=== PATIENT | female | born 1960 | race Caucasian/White ===

== ENCOUNTER → 2017-01-07 | Outpatient (CLI) | payer OTHER ==
--- NOTE | 2017-01-07 14:06 | RAD ---
DATE: 01/07/2017 EXAM: DIGITAL DIAGNOSTIC RT HISTORY: Suspicious screening study COMPARISON: 12/29/2016 This study was interpreted with the benefit of Computerized Aided Detection (CAD). The breast parenchyma shows scattered fibroglandular densities. Breast parenchyma level B. FINDINGS: On the screening mammograms a suspicious opacity was noted posteriorly on only the oblique view of the right breast. Today's spot compression and straight medial lateral views of that region do not demonstrate a nodule. Spot compression cc views of the lateral aspect of the breast are also unremarkable. The appearance on the screening study was presumably a summation shadow. IMPRESSION: There is no mammographic evidence of malignancy in the right breast. BI-RADS CATEGORY: 2 BENIGN FINDING(S) RECOMMENDED FOLLOW-UP: 12M 12 MONTH FOLLOW-UP PQRS compliance statement: Patient information was entered into a reminder system with a target due date for the next mammogram. Mammography is a sensitive method for finding small breast cancers, but it does not detect them all and is not a substitute for careful clinical examination. A negative mammogram does not negate a clinically suspicious finding and should not result in delay in biopsying a clinically suspicious abnormality. "Our facility is accredited by the [employer] Mammography Program."
== END | disposition home or self-care (01) ==
LOC: MAMMO 12:44
PROVIDERS: ATTEND Obstetrics & Gynecology
DX: R92.8 Other abnormal and inconclusive findings on diagnostic imaging of breast (principal)
CPT/HCPCS: G0206; 77065